=== PATIENT | female | born 1980 | race Caucasian/White ===

== ENCOUNTER 2017-03-25 15:36 | Inpatient (IN) | payer OTHER ==
--- NOTE | 2017-03-25 17:05 | GHP ---
[f rep st] HISTORY AND PHYSICAL DATE OF ADMISSION: 03/25/2017 HISTORY OF PRESENT ILLNESS: The patient is a 36-year-old 3, para 1, with an EDC of 03/24/2017 who comes in on 03/25/2017 to the office with complaint of rupture of membranes since 8:00 p.m. on 03/24/2017. In the office , positive rupture was evidenced by positive nitrazine, positive ferning, bulging fore-bag was noted on exam. Patient was 7 to 8 cm, 100% effaced, -1 station, cephalic. PAST MEDICAL HISTORY: The patient has history of positive menstrual migraines, history of anxiety. The patient is a vegan. PREVIOUS HISTORY: In 10/2014, a male 6 pounds at 39 and 2, 56-hours of labor, vaginally. At 35-weeks attempt for a home , but transferred to [facility] for failure to progress. In 09/2015 a missed AB with a D and C. With present history, AMA. PAST SURGICAL HISTORY: Left ankle, benign tumor, tonsillectomy and then D and C. SOCIAL HISTORY: Denies tobacco use. The patient states positive marijuana use , but now with denies other drug use. , partner's name is Steve. FAMILY HISTORY: Benign. LABS: Patient is A positive, antibody negative. RPR is nonreactive. Rubella is immune. Hepatitis is negative. HIV is negative. Triple screen 08/27/2016 was negative. Pap, GCCT on 08/24/2016 was negative. AFP was negative. Verifi was negative. One hour GTT was within normal limits. Patient is GBS negative. PHYSICAL EXAMINATION: GENERAL: Patient is awake, alert, oriented x3. LUNGS: Clear bilaterally. ABDOMEN: Bowel sounds are positive in all 4 quadrants. EXTREMITIES: DTRs are 1+ bilaterally with no clonus. Homans sign is negative. PELVIC EXAM: Patient was 7 to 8 cm, 90% effaced, -1 station, cephalic. Patient states freddy irregularly. Positive rupture membranes at 8:00 p.m. on 03/24/2017. PLAN OF CARE: 1. GBS negative 2. Expectant management of labor. 3. Intermittent monitoring if baby looks great on monitor over 20 to 30 minute period initially in Labor and Delivery. /[id number]/MODL MTDD
[2017-03-25] MEDS ORDERED: LR 1,000 ML IV PRN (17:14)
[2017-03-25] MEDS ORDERED: TERBUTALINE SULFATE 1 MG/ML VIAL IV PRN (17:14)
[2017-03-25] MEDS ORDERED: OLIVE OIL 118 ML BTL MISC PRN (17:14)
[2017-03-25] MEDS ORDERED: OXYTOCIN/RINGERS LACTATE 1,000 ML IV PRN (17:14)
[2017-03-25] MEDS ORDERED: EPSOM SALT 454 GM TP PRN (17:14)
[2017-03-25] MEDS ORDERED: LIDOCAINE 1% 300 MG/30 ML SDV ONE (17:20)
[2017-03-25] MEDS ORDERED: OLIVE OIL 118 ML BTL ONE (17:20)
[2017-03-25] MEDS ORDERED: MISOPROSTOL 200 MCG TAB ONE (17:21)
[2017-03-25 17:32] LABS: % IMMATURE GRANULYOCYTES 0.6 % (0.0-1.1); ABSOLUTE IMMATURE GRANULOCYTES 0.06 10^3/uL (0.00-0.10); ADD DIFF? NO; ADD MORPH? NO; ADD SCAN? NO; ATYPICAL LYMPHOCYTE FLAG 0 (0-99); FRAGMENT RBC FLAG 0 (0-99); HEMATOCRIT 36.4 % (38.0-47.0); HEMOGLOBIN 12.7 g/dL (12.6-16.3); LEFT SHIFT FLG 0 (0-99); LIPEMIA HEMOLYSIS FLAG 90 (0-99); MEAN CELL HEMOGLOBIN CONCENTR. 34.9 g/dL (32.4-36.7); MEAN CELL VOLUME 97.3 fL (81.5-99.8); MEAN PLATELET VOLUME 10.4 fL (8.7-11.7); PLATELET CLUMPS FLAG 0 (0-99); PLATELET COUNT 213 10^3/uL (150-400); RED BLOOD CELL COUNT 3.74 10^6/uL (4.18-5.33); RED CELL DISTRIBUTION WIDTH 12.7 % (11.5-15.2)
--- NOTE | 2017-03-25 18:19 | OBPROG ---
OBG Labor Progress Note Assessment/Plan: Assessment:cat1 intially in labor and delivery /-1 cephalic on exam in the office srom clear fluid 199903/24/2017 freddy kleyyncylnr2-2-3 minutes apart will get up and move around to assist with regular contractions declines rom of forebag at this time Plan:expectant management of labor 03/25/17 18:07 Subjective: Arom 1999. 03/24/2017 for clear fluid verified in the office. + pooling. + nitrazine. Positive bbow forebag Objective: 03/25/17 16:35 - SVE Dilation (cm): 7 Effacement (%): 100 Station: -1 Oxytocin Orders Assessment - Pre-Induction/Augmentation Assessment Gestational Age: 40 week(s) and 1 day(s) ICD10 Worksheet Patient Problems: Problems Problem Status Onset Delivery normal Acute
--- NOTE | 2017-03-25 22:34 | OBPROG ---
OBG Labor Progress Note Assessment/Plan: Assessment:cat1 intially in labor and delivery 8/100/0 cephalic on exam in the office srom clear fluid 199903/24/2017 freddy aawhexormlj4-7-7 minutes apart will get up and move around to assist with regular contractions arom clear fluid discussed nipple stimulation discussed pitocin to assist with regular contractions Plan:expectant management of labor 03/25/17 18:07 03/25/17 22:32 Subjective: this feels like it did before. I really dont want to do all this Objective: 03/25/17 16:35 Patient ABO/Rh A POSITIVE 03/25/17 16:35 - SVE Dilation (cm): 8 Effacement (%): 100 Station: 0 Oxytocin Orders Assessment - Pre-Induction/Augmentation Assessment Gestational Age: 40 week(s) and 1 day(s) ICD10 Worksheet Patient Problems: Problems Problem Status Onset Delivery normal Acute
[2017-03-25] MEDS ORDERED: OXYTOCIN/RINGERS LACTATE 500 ML IV SCH (23:00)
--- NOTE | 2017-03-26 03:33 | OBDEL ---
Info Type: Vaginal GBS+: No Indications for Delivery: Spontaneous Labor Vaginal Delivery - Labor and Delivery Onset of Contractions Date: 03/25/17 Onset of Contractions Time: 10:00 Rupture of Membranes Date: 03/24/17 Rupture of Membranes Time: 20:00 Rupture of Membranes Type: Spontaneous Amniotic Fluid Color: Clear, Meconium Stained Dilation Complete Date: 03/25/17 Dilation Complete Time: 23:59 Placenta Delivery Date: 03/26/17 Placenta Delivery Time: 03:01 Total Hours of Labor: 17 Non-surgical Procedures: Amniotomy, Other (Specify) (forebag) Laceration: 2nd Degree Repair: 3-0, Vicryl Vaginal Sponge Count Correct: Yes Vaginal Needle Count Correct: Yes Vaginal Sweep Performed: No EBL: 400 Delivery Events: None Delivery Comment: Patient time for pushing prolonged however patient choosing not to push contractions q10 minutes apart. Pitocin started with pushing. terminal meconium at delivery. Clear intially - Medications Labor Augmentation/Induction Methods Used: Pitocin Data [place] Delivery Date: 03/26/17 Delivery Time: 02:56 MELVA: 03/24/17 Gestational Age: 40 week(s) and 2 day(s) Sex of Infant: Male Score (1 Min): 8 Score (5 Min): 9 ICD10 Worksheet Patient Problems: Problems Problem Status Onset Delivery normal Acute
[2017-03-26] MEDS ORDERED: HYDROCORTISONE 0.5% CREAM TP PRN (03:34)
[2017-03-26] MEDS ORDERED: ACETAMINOPHEN 325 MG TAB PO PRN (03:34)
[2017-03-26] MEDS ORDERED: SIMETHICONE 80 MG TAB CHEW PO PRN (03:34)
--- NOTE | 2017-03-26 03:39 | OBGCSDC ---
General Delivery Information - General Info : 3 Para: 1 Abortions: 1 Delivery Physician/CNM: Joyce Garcia Admission Date: 03/25/17 Labs: Patient ABO/Rh A POSITIVE 03/25/17 16:35 Hct 36.4 % (38.0-47.0) L 03/25/17 16:35 Vaginal - Diagnosis Labor: Augmented Rupture of Membranes Type: Spontaneous Amniotic Fluid Color: Clear, Meconium Stained Laceration: 2nd Degree Repair: 3-0, Vicryl Delivery Events: None - Operations/Procedures Non-surgical Procedures: Amniotomy, Other (Specify) (forebag) L&D Analgesia/Anesthesia Type: Local, Other (Specify) (for 2 degree laceration repair) - Hospital Course Antepartum: [place] migraines vegan h/o anxiety on celexa 10mg po qd Intrapartum: augmentation of labor during second stage. prolonged push patient fearful. 2 degree repair with 3.0 vicryl. local lidocaine 1% - Delivery Type: Vaginal Non-surgical Procedures: Amniotomy, Other (Specify) (forebag) EBL: 400 Data [place] Delivery Date: 03/26/17 Delivery Time: 02:56 MELVA: 03/24/17 Gestational Age: 40 week(s) and 2 day(s) Sex of Infant: Male Score (1 Min): 8 Score (5 Min): 9
[2017-03-26] MEDS: IBUPROFEN 600 MG TAB PO PRN ×4 (04:08→23:56)
[2017-03-26] MEDS: HYDROCODONE/APAP 5/325 TAB PO PRN ×5 (04:08→23:56)
[2017-03-26 05:51] VITALS: RESP 16
[2017-03-26] MEDS ORDERED: CITALOPRAM 20 MG TAB PO SCH ×2 (09:00→21:00)
[2017-03-26] MEDS ORDERED: CITALOPRAM HYDROBROMIDE PO SCH ×2 (09:00)
[2017-03-26] MEDS: DOCUSATE SODIUM 100 MG CAP PO PRN ×2 (09:14→20:56)
[2017-03-26 19:09] VITALS: O2SAT 96
[2017-03-27] MEDS: IBUPROFEN 600 MG TAB PO PRN (06:01)
--- NOTE | 2017-03-27 07:39 | OBPP ---
Progress Note Assessment/Plan: Assessment: 1) s/p PPD # 1 - pt is stable 2) Anemia - pt asymptomatic Plan: Continue routine pp care Plan for d/c home today Instructions reviewed with pt Rx given for [place] and Motrin Cont PNV and iron Pelvic rest RTC in 4 and 6 weeks for pp visit 03/27/17 07:42 Subjective: Pt seen and examined. Doing well, no complaints. Some cramping, relief with [place]. Pt is OOB, celia reg diet, voiding and passing flatus. No BM yet. Moderate lochia. BF without difficulty. Wants to go home today. Objective: 03/25/17 16:35 Patient ABO/Rh A POSITIVE 03/25/17 16:35 Temp Pulse Resp BP Pulse Ox 36.8 C 63 16 106/60 96 03/26/17 19:08 03/26/17 19:08 03/26/17 19:08 03/26/17 19:08 03/26/17 19:08 Uterine Position/Fundal Height: Umbilicus -2 Uterine Tone: Firm Physical Exam - Physical Exam General Appearance: WD/WN, alert, no apparent distress Respiratory: lungs clear, normal breath sounds Cardiac/Chest: regular rate, rhythm Abdomen: normal bowel sounds, non-tender, soft, flatus (+) Extremities: non-tender, normal inspection Neuro/Psych: alert, normal mood/affect, oriented x 3
--- NOTE | 2017-03-27 07:46 | OBGCSDC ---
General Delivery Information - General Info : 3 Para: 2 Delivery Physician/CNM: Joyce Garcia Labs: Patient ABO/Rh A POSITIVE 03/25/17 16:35 Hct 36.4 % (38.0-47.0) L 03/25/17 16:35 Vaginal - Diagnosis Labor: Augmented Rupture of Membranes Type: Spontaneous Amniotic Fluid Color: Clear, Meconium Stained Laceration: 2nd Degree Repair: 3-0, Vicryl Delivery Events: None - Operations/Procedures Non-surgical Procedures: Amniotomy, Other (Specify) (forebag) L&D Analgesia/Anesthesia Type: None - Hospital Course : Uncomplicated. Doing well, with no complaints. Moderate lochia. BF without difficulty. - Delivery Non-surgical Procedures: Amniotomy, Other (Specify) (forebag) L&D Analgesia/Anesthesia Type: None [place] Data [facility] Delivery Date: 03/26/17 Delivery Time: 02:56 MELVA: 03/24/17 Gestational Age: 40 week(s) and 3 day(s) Sex of Infant: Male [place] Weight (gm): 2902 g Score (1 Min): 8 Score (5 Min): 9 Discharge Information - Discharge Information Discharge Medications: Ibuprofen, Vitamins, Other (Specify) (Mcdavid) Condition: Good Instruction/Follow Up: Six Weeks (Four weeks for mood check) Discharge Physician/CNM: Kamilla Astorga
[2017-03-27] MEDS: HYDROCODONE/APAP 5/325 TAB PO PRN (11:43)
[2017-03-27 14:34] VITALS: BP 113/62; PULSE 57; TEMP 97.3
== END 2017-03-27 12:10 | disposition home or self-care (01) | DRG 775 ==
LOC: FLD 15:36 → FOB 03-26 05:23
PROVIDERS: ADMIT Advanced Practice Midwife; ATTEND Obstetrics & Gynecology
PROC: 10E0XZZ Delivery of Products of Conception, External Approach (ICD-10-PCS; principal; 2017-03-25)
PROC: 0KQM0ZZ Repair Perineum Muscle, Open Approach (ICD-10-PCS; principal; 2017-03-25)
PROC: 10907ZC Drainage of Amniotic Fluid, Therapeutic from Products of Conception, Via Natural or Artificial Opening (ICD-10-PCS; principal; 2017-03-25)
DX: O48.0 Post-term pregnancy (principal); O70.1 Second degree perineal laceration during delivery; O77.0 Labor and delivery complicated by meconium in amniotic fluid; O90.81 Anemia of the puerperium; Z3A.40 40 weeks gestation of pregnancy; Z37.0 Single live birth
CPT/HCPCS: J2590